=== PATIENT | male | born 1990 | race African-American/Black ===

== ENCOUNTER 2018-07-24 15:41 | Emergency (ER) | payer SELFPAY ==
[2018-07-24 17:12] LABS: #Eosinphils 0.1 thou/uL (0.0-0.7); #Lymphocytes 1.2 thou/uL (1.20-3.40); #Monocytes 0.5 thou/uL (0.11-0.59); %Basophils 0.5 % (0.0-1.0); %Eosinophils 1.3 % (0.0-10.0); %Monocytes 8.4 % (0.0-10.0); %Neutrophils 68.8 % (42.0-75.0); Hemoglobin 16.8 g/dL (14.0-18.0); Mean Corpuscular Hemoglobin 30.9 pg (27.0-31.0); Mean Corpuscular Volume 90.8 fL (78.0-98.0); Mean Platelet Volume 8.4 fL (7.4-10.4); Platelet Count 233 thou/uL (130-400); RBC Distribution Width 12.1 % (11.5-14.5); Red Blood Cell (RBC) Count 5.44 mill/uL (4.70-6.10); White Blood Cell (WBC) Count 5.9 thou/uL (4.8-10.8)
[2018-07-24 17:28] LABS: ALT (SGPT) 20 U/L (8-55); AST (SGOT) 24 U/L (5-34); Albumin 4.3 g/dL (3.5-5.0); Alkaline Phosphatase 52 U/L (40-150); Anion Gap 15 mmol/L (10-20); BUN (Urea Nitrogen) 8 mg/dL (8.9-20.6); Bilirubin, Total 1.1 mg/dL (0.2-1.2); Calc. Creatinine Clearance 0 mL/min (70-130); Calcium 9.6 mg/dL (7.8-10.44); Carbon Dioxide 25 mmol/L (22-29); Chloride 105 mmol/L (98-107); Estimated GFR-MDRD Greater than 90; Globulin 3.1 g/dL (2.4-3.5); Glucose 97 mg/dL (70-105); Potassium 4.5 mmol/L (3.5-5.1); Protein, Total 7.4 g/dL (6.0-8.3); Sodium 140 mmol/L (136-145)
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
[2018-07-24] MEDS ORDERED: Lidocaine 4% Cream 5 GM TUBE w/ Tegaderm ONE (17:45)
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
== END 2018-07-24 19:05 | disposition home or self-care (01) ==
LOC: ERS 15:41
DX: S06.9X9A Unspecified intracranial injury with loss of consciousness of unspecified duration, initial encounter (principal); S01.01XA Laceration without foreign body of scalp, initial encounter; J45.909 Unspecified asthma, uncomplicated; F17.210 Nicotine dependence, cigarettes, uncomplicated; Y00.XXXA Assault by blunt object, initial encounter
CPT/HCPCS: 12001; 36415; 70450; 70486; 80053; 85025; 99406; J2270

== ENCOUNTER 2018-07-31 19:28 | Emergency (ER) | payer SELFPAY | END 2018-07-31 19:50 | disposition home or self-care (01) | LOC: ERS 19:28 | DX: S01.01XD Laceration without foreign body of scalp, subsequent encounter (principal); J45.909 Unspecified asthma, uncomplicated; F17.210 Nicotine dependence, cigarettes, uncomplicated; Y04.8XXD Assault by other bodily force, subsequent encounter ==

== ENCOUNTER 2018-12-01 15:56 | Emergency (ER) | payer SELFPAY ==
[2018-12-01] MEDS ORDERED: Ibuprofen 800 MG TAB ONE (17:43)
[2018-12-01 17:54] LABS: Bilirubin Negative (Negative); Blood, Urine Negative (Negative); Clarity CLOUDY (Clear); Glucose, Urine (Dipstick) Negative (Negative); Leukocyte Moderate (Negative); Nitrite Negative (Negative); Protein, Urine (Dipstick) Negative (Neg-Trace); Specific Gravity, Urine 1.024 (1.002-1.036)
[2018-12-01 17:57] LABS: Bacteria/HPF None Seen HPF (None Seen); RBC/HPF 0-3 HPF (0-3); Squamous Epithelial 0-3 HPF (0-3)
[2018-12-01 18:14] LABS: Hyaline Casts/LPF 0-3 HYALINE CAST LPF (0-3 Hyaline); Transitional Epithelial 0-3 HPF (0-3)
--- NOTE | 2018-12-01 18:54 | RAD ---
AP VIEW CHEST: 12/01/18 HISTORY: Bodyaches, cough, pain. AP view chest is obtained. The lungs are well aerated. No evidence of active intrathoracic disease se en. No evidence of effusions, pneumonia or pneumothorax. IMPRESSION: Unremarkable AP view chest. POS: [facility]
[2018-12-02 21:25] LABS: Chlamydia by PCR DETECTED (NotDetected); GC by PCR DETECTED (NotDetected)
== END 2018-12-01 20:04 | disposition home or self-care (01) ==
LOC: ERS 15:56
DX: J11.1 Influenza due to unidentified influenza virus with other respiratory manifestations (principal); N12 Tubulo-interstitial nephritis, not specified as acute or chronic; F17.210 Nicotine dependence, cigarettes, uncomplicated; J45.909 Unspecified asthma, uncomplicated
CPT/HCPCS: 71045; 81003; 81015; 87086; 87491; 87591; 87804

== ENCOUNTER 2018-12-04 12:48 | Day surgery (SDC) | payer OTHER, SELFPAY ==
[2018-12-04] MEDS ORDERED: cefTRIAXone\\ROCEPHIN 250 MG VIAL ONE (13:18)
[2018-12-04] MEDS ORDERED: Lidocaine 1% PF 5 ML VIAL ONE (13:18)
[2018-12-04] MEDS ORDERED: Azithromycin 250 MG TAB ONE (13:18)
== END 2018-12-04 12:49 | disposition home or self-care (01) ==
LOC: ER/OP 12:48 → ERS 12:49 → ER/OP 12:49 → EDSTATUS 13:09
DX: A64 Unspecified sexually transmitted disease (principal); Z88.8 Allergy status to other drugs, medicaments and biological substances
CPT/HCPCS: J0696; J2001

== ENCOUNTER 2019-04-07 09:42 | Outpatient (CLI) | payer OTHER ==
[2019-04-07 10:53] LABS: #Basophils 0.1 thou/uL (0.0-0.2); #Eosinphils 0.1 thou/uL (0.0-0.7); #Lymphocytes 1.8 thou/uL (1.20-3.40); #Monocytes 0.3 thou/uL (0.11-0.59); #Neutrophils 1.5 thou/uL (1.40-6.50); %Basophils 1.4 % (0.0-1.0); %Eosinophils 3.2 % (0.0-10.0); %Lymphocytes 48.6 % (21.0-51.0); %Monocytes 7.9 % (0.0-10.0); Mean Corpuscular HGB CONC 33.9 g/dL (32.0-36.0); Mean Corpuscular Hemoglobin 30.8 pg (27.0-31.0); Mean Corpuscular Volume 90.7 fL (78.0-98.0); Mean Platelet Volume 8.1 fL (7.4-10.4); Platelet Count 237 thou/uL (130-400); RBC Distribution Width 12.1 % (11.5-14.5); Red Blood Cell (RBC) Count 4.87 mill/uL (4.70-6.10); White Blood Cell (WBC) Count 3.7 thou/uL (4.8-10.8)
[2019-04-07 11:20] LABS: Anion Gap 12 mmol/L (10-20); BUN (Urea Nitrogen) 11 mg/dL (8.9-20.6); Calc. Creatinine Clearance 0 mL/min (70-130); Calcium 9.8 mg/dL (7.8-10.44); Carbon Dioxide 26 mmol/L (22-29); Chloride 105 mmol/L (98-107); Estimated GFR-MDRD Greater than 90; Glucose 90 mg/dL (70-105); Sodium 139 mmol/L (136-145)
== END 2019-04-07 09:43 | disposition home or self-care (01) ==
LOC: LABBT 09:42
PROVIDERS: ATTEND Surgery
DX: Z01.818 Encounter for other preprocedural examination (principal); K40.90 Unilateral inguinal hernia, without obstruction or gangrene, not specified as recurrent
CPT/HCPCS: 80048; 85025

== ENCOUNTER 2019-04-17 10:16 | Day surgery (SDC) | payer OTHER ==
[2019-04-07 10:14] VITALS: BMI 23.3
[2019-04-17] MEDS ORDERED: Bupivacaine/Epinephrine 0.25% 30 ML VIAL ONE (13:14)
[2019-04-17] MEDS ORDERED: Fentanyl 250 MCG/5 ML VIAL ONE (14:13)
[2019-04-17] MEDS ORDERED: SUGAMMADEX SODIUM 200 MG/2 ML VIAL ONE (15:36)
[2019-04-17] MEDS ORDERED: Morphine 2 MG/ML SYRINGE ONE ×2 (16:39→17:54)
[2019-04-17] MEDS ORDERED: traMADol HCl 50 MG TAB ONE (17:22)
--- NOTE | 2019-04-17 17:55 | OP ---
DATE OF PROCEDURE: 04/17/2019 PREOPERATIVE DIAGNOSIS: Left inguinal hernia. POSTOPERATIVE DIAGNOSIS: Left inguinal hernia. PROCEDURE PERFORMED: Laparoscopic Da Sherie left inguinal hernia repair with mesh, Bard 3DMax large. ANESTHESIA: General. ESTIMATED BLOOD LOSS: Minimal. COMPLICATIONS: None. SPECIMENS: None. FINDINGS: Left inguinal hernia. DESCRIPTION OF PROCEDURE: The patient was taken to the operating room and laid supine on the operating room table. After general anesthetic was obtained, the bilateral groin and abdomen were shaved, prepped, and draped in a sterile fashion. A Shaw catheter had been placed. A curved incision was made above the umbilicus. Cautery was dissected down to and score the fascia. Abdominal cavity was entered bluntly using Rebeka clamp. The 11 mm balloon trocar was placed and high-flow pneumoperitoneum was obtained. Left and right abdominal 8 mm robot trocars were placed, and all ports were docked to the robot. Surgeon goes to the console. The peritoneum was opened in the left groin. The preperitoneal space was bluntly dissected to pubic tubercle medially and anterior superior iliac crest laterally. Large indirect inguinal hernia sac was dissected away from the other cord structures high up on to the peritoneum. The 3DMax large mesh was brought into the sterile field. The M-labeled medial aspect was placed over pubic tubercle medially. The mesh was laid out to cover the indirect, direct, and femoral areas. 2-0 Vicryl was used to sew the mesh to pubic tubercle medially and to the posterior fascia laterally. 3-0 Stratafix was used to reclose the peritoneum. All needles were removed from the abdomen and accounted for. There was no right-sided hernia. All port sites were infiltrated using local anesthetic. PDS was used to close the fascial defect below the umbilicus. All incisions were closed using 4-0 Monocryl and Dermabond. The patient was sent to Recovery in stable condition. All instrument counts, needle counts, and lap counts were correct. Job ID: [id number]
== END 2019-04-17 18:30 | disposition home or self-care (01) ==
LOC: SDC 10:16
PROVIDERS: ATTEND Surgery
PROC: 0YU64JZ Supplement Left Inguinal Region with Synthetic Substitute, Percutaneous Endoscopic Approach (ICD-10-PCS; principal; 2019-04-17)
DX: K40.90 Unilateral inguinal hernia, without obstruction or gangrene, not specified as recurrent (principal); J45.909 Unspecified asthma, uncomplicated; Z87.891 Personal history of nicotine dependence; Z88.6 Allergy status to analgesic agent; Z79.899 Other long term (current) drug therapy
CPT/HCPCS: C1781; J0690; J2270; J3010

== ENCOUNTER 2019-11-04 09:08 | Emergency (ER) | payer OTHER | END 2019-11-04 09:50 | disposition home or self-care (01) | LOC: ERS 09:08 | DX: J10.1 Influenza due to other identified influenza virus with other respiratory manifestations (principal); J45.909 Unspecified asthma, uncomplicated; F17.210 Nicotine dependence, cigarettes, uncomplicated | CPT/HCPCS: 87804; 99283 ==

== ENCOUNTER 2020-08-19 11:46 | Emergency (ER) | payer SELFPAY ==
[2020-08-19] MEDS ORDERED: Famotidine/PF 20 mg/2ml Vial ONE (12:24)
[2020-08-19] MEDS ORDERED: Lidocaine 4% Cream 5 GM TUBE w/ Tegaderm ONE (12:24)
== END 2020-08-19 13:38 | disposition home or self-care (01) ==
LOC: ERS 11:46
DX: T63.461A Toxic effect of venom of wasps, accidental (unintentional), initial encounter (principal); J45.909 Unspecified asthma, uncomplicated; F17.210 Nicotine dependence, cigarettes, uncomplicated; I10 Essential (primary) hypertension; Z79.899 Other long term (current) drug therapy
CPT/HCPCS: 96374; S0028

== ENCOUNTER 2021-07-22 14:06 | Emergency (ER) | payer BC ==
[2021-07-22] MEDS ORDERED: Morphine 4 MG/ML VIAL ONE (14:54)
[2021-07-22] MEDS ORDERED: Ketorolac Tromethamine 30 MG/ML VIAL ONE (14:55)
[2021-07-22] MEDS ORDERED: Ondansetron PF 4 MG/2 ML Vial ONE (14:55)
== END 2021-07-22 15:32 | disposition home or self-care (01) ==
LOC: ERS 14:06
DX: R07.81 Pleurodynia (principal); V59.40XA Driver of pick-up truck or van injured in collision with unspecified motor vehicles in traffic accident, initial encounter; Z79.899 Other long term (current) drug therapy; E78.5 Hyperlipidemia, unspecified; I10 Essential (primary) hypertension; J45.909 Unspecified asthma, uncomplicated; F17.210 Nicotine dependence, cigarettes, uncomplicated
CPT/HCPCS: 71045; 96374; 96375; J1885; J2270; J2405

== ENCOUNTER 2022-08-21 23:22 | Emergency (ER) | payer SELFPAY ==
[2022-08-22] MEDS ORDERED: Benzonatate 100 MG CAP ONE (01:07)
[2022-08-22] MEDS ORDERED: Ketorolac Tromethamine 30 MG/ML VIAL ONE (01:07)
[2022-08-22 01:58] LABS: SARS-CoV-2 NAA Rapid Test Not Detected (NotDetected)
== END 2022-08-22 02:50 | disposition home or self-care (01) ==
LOC: ERS 23:22
DX: J10.1 Influenza due to other identified influenza virus with other respiratory manifestations (principal); I10 Essential (primary) hypertension; E78.5 Hyperlipidemia, unspecified; F17.210 Nicotine dependence, cigarettes, uncomplicated; Z20.822 Contact with and (suspected) exposure to COVID-19
CPT/HCPCS: 96372; 99283; J1885

== ENCOUNTER 2023-01-07 21:22 | Emergency (ER) | payer OTHER ==
[2023-01-07] MEDS ORDERED: Orphenadrine Citrate 60 MG/2 ML VIAL ONE (21:45)
[2023-01-07 22:35] LABS: Bilirubin Negative (Negative); Blood, Urine Negative (Negative); Clarity Clear (Clear); Glucose, Urine (Dipstick) Normal (Negative); Ketone, Urine Negative (Negative); Leukocyte 250 Leu/uL (Negative); Nitrite Negative (Negative); Protein, Urine (Dipstick) 30 mg/dL (Neg-Trace); RBC/HPF 0-3 HPF (0-3); Specific Gravity, Urine 1.019 (1.002-1.036); Squamous Epithelial 0-3 HPF (0-3); WBC/HPF Greater than 50 HPF (0-3); pH, Urine 6.5 (5.0-9.0)
[2023-01-07 22:36] LABS: Bacteria/HPF 1+ HPF (None Seen); Sperm/HPF Rare HPF (None Seen)
== END 2023-01-07 23:02 | disposition home or self-care (01) ==
LOC: ERS 21:22
DX: N39.0 Urinary tract infection, site not specified (principal); I10 Essential (primary) hypertension; E78.5 Hyperlipidemia, unspecified; F17.210 Nicotine dependence, cigarettes, uncomplicated
CPT/HCPCS: 72020; 81003; 81015; 96372; J2360

== ENCOUNTER 2024-03-28 21:38 | Emergency (ER) | payer OTHER ==
[2024-03-28] MEDS ORDERED: HYDROcodone/Acetaminophen 10/325 mg Tablet ONE (23:49)
== END 2024-03-29 00:02 | disposition home or self-care (01) ==
LOC: ERS 21:38
DX: S13.4XXA Sprain of ligaments of cervical spine, initial encounter (principal); S70.01XA Contusion of right hip, initial encounter; S80.01XA Contusion of right knee, initial encounter; V49.9XXA Car occupant (driver) (passenger) injured in unspecified traffic accident, initial encounter
CPT/HCPCS: 70450; 72125